=== PATIENT | male | born 1945 | race Asian ===

== ENCOUNTER 2021-12-05 15:23 | Inpatient (IN) | payer OTHER, MEDICARE ==
[~2021-12-05] VITALS: Ht 165.1 cm; Wt 96.2 kg
[2021-12-05] MEDS ORDERED: METO50 PO (15:37)
[2021-12-05] MEDS ORDERED: FELO5TAB45 PO (15:37)
[2021-12-05] MEDS ORDERED: LEVO50 PO (15:37)
[2021-12-05] MEDS ORDERED: IRBE150T51 PO (15:37)
[2021-12-05] MEDS ORDERED: RIVA20TA PO (15:37)
[2021-12-05] MEDS ORDERED: TAMS-13 PO (15:37)
[2021-12-05 16:01] LABS: BASOPHILS % (AUTO) 0.9 % (0.0-2.0); EOSINOPHILS % (AUTO) 3.7 % (1.0-6.0); HEMATOCRIT 44.5 % (41-53); HEMOGLOBIN 15.2 g/dL (13.5-17.5); LYMPHOCYTES # (AUTO) 2.3 K/uL (1.0-4.8); LYMPHOCYTES % (AUTO) 29.7 % (22.0-44.0); MEAN CORPUSCULAR HGB CONC 34.3 G/dL (31.0-37.0); MEAN CORPUSCULAR VOLUME 88 fL (80-100); MONOCYTES # (AUTO) 0.5 K/uL (0.1-1.0); MONOCYTES % (AUTO) 6.8 % (2.0-9.0); NEUTROPHILS # (AUTO) 4.6 K/uL (1.8-7.7); NEUTROPHILS % (AUTO) 58.9 % (40.0-70.0); PLATELET COUNT (AUTO) 202 K/uL (150-450); RED BLOOD CELL COUNT(AUTO) 5.08 MIL/uL (4.50-5.90); RED CELL DISTRIBUTION WIDTH 13.6 % (11.5-14.5)
[2021-12-05 16:14] LABS: ANION GAP 9 mmol/L (8-16); CALCIUM, TOTAL 8.2 mg/dL (8.8-10.5); CARBON DIOXIDE 29 mmol/L (22-29); CHLORIDE 102 mmol/L (98-107); CREATININE 0.99 mg/dL (0.60-1.30); GLUCOSE,RANDOM 112 mg/dL (70-110); POTASSIUM 3.4 mmol/L (3.5-5.1); SODIUM SERUM 140 mmol/L (136-145); UREA NITROGEN, BLOOD 11 mg/dL (7-18)
[2021-12-05 16:15] LABS: GLOMERULAR FILTR. RATE CALC > 60 mL/min (>60)
[2021-12-05 16:17] LABS: B-TYPE NATRIURETIC PEPTIDE 240 pg/mL (0-100)
[2021-12-05 16:24] LABS: ALANINE AMINOTRANSFERASE 23 U/L (12-78); ALBUMIN 3.4 g/dL (3.4-5.0); ALKALINE PHOSPHATASE 54 U/L (46-116); ASPARTATE AMINOTRANSFERASE 18 U/L (15-37); THYROID STIMULATING HORMONE 1.88 uIU/mL (0.36-3.74); TOTAL PROTEIN, SERUM 7.1 g/dL (6.4-8.2)
[2021-12-05] MEDS ORDERED: HydrALAZINE HCL 20 MG/ML VIAL IVP ONE ×2 (16:30→20:15)
[2021-12-05 16:54] LABS: COVID AG,FIA SOURCE NASAL SWAB
[2021-12-05 16:55] LABS: APPEARANCE,URINE CLEAR (CLEAR); BILIRUBIN,URINE NEGATIVE (NEGATIVE); GLUCOSE, URINE (UA) >=1000 mg/dL (NEGATIVE); KETONES,URINE NEGATIVE (NEGATIVE); LEUKOCYTE ESTERASE ,URINE NEGATIVE (NEGATIVE); NITRATE,URINE NEGATIVE (NEGATIVE); OCCULT BLOOD,URINE TRACE (NEGATIVE); PROTEIN,URINE NEGATIVE (NEGATIVE); SPECIFIC GRAVITIY, URINE 1.007 (1.003-1.030); UROBILINOGEN,URINE <=1.0 mg/dL (<=1.0)
[2021-12-05 17:04] LABS: BACTERIA,URINE None Seen /HPF (None Seen); RBC,URINE 0-2 /HPF (0-2); SQUAMOUS EPITHELIAL CELL,UR None Seen /LPF (None Seen); WBC,URINE 0-2 /HPF (0-5)
[2021-12-05] MEDS: AmLODIPine BESYLATE 10 MG TABLET PO SCH (18:08)
[2021-12-05] MEDS ORDERED: POTASSIUM CHL 10 MEQ/WATER 50 ML IV PRN (18:15)
[2021-12-05] MEDS ORDERED: POTASSIUM CHLORIDE 20 MEQ ER TABLET PO PRN (18:15)
[2021-12-05 21:50] VITALS: BP 155/86
[2021-12-05] MEDS: DOCUSATE SODIUM 100 MG CAPSULE PO SCH (22:38)
[2021-12-05] MEDS: LOSARTAN POTASSIUM 25 MG TABLET PO SCH (22:39)
[2021-12-05] MEDS: ACETAMINOPHEN 325 MG TABLET PO PRN (22:40)
[2021-12-06 00:46] VITALS: BP 144/92
[2021-12-06 04:28] VITALS: BP 158/104
[2021-12-06 07:56] VITALS: BP 153/113
[2021-12-06] MEDS: DOCUSATE SODIUM 100 MG CAPSULE PO SCH ×3 (08:59→20:21)
[2021-12-06] MEDS: AmLODIPine BESYLATE 10 MG TABLET PO SCH (09:00)
[2021-12-06] MEDS: FAMOTIDINE 20 MG TABLET PO SCH (09:00)
[2021-12-06] MEDS: RIVAROXABAN 20 MG TABLET PO SCH (09:00)
[2021-12-06] MEDS: METOPROLOL TARTRATE 25 MG TABLET PO SCH (09:01)
[2021-12-06] MEDS: LOSARTAN POTASSIUM 25 MG TABLET PO SCH (09:01)
[2021-12-06 10:55] VITALS: BP 122/50
[2021-12-06] MEDS ORDERED: FINA-27 PO (13:26)
[2021-12-06] MEDS ORDERED: EMPA10TA PO (13:30)
[2021-12-06] MEDS: TAMSULOSIN HCL 0.4 MG CAPSULE PO SCH (14:45)
[2021-12-06] MEDS: FINASTERIDE 5 MG TABLET PO SCH (14:45)
[2021-12-06 15:03] VITALS: BP 135/69
[2021-12-06] MEDS: GuaiFENesin/D-METHORPHAN [SUGAR-FREE] 200-20MG/10 ML SYRUP UDCUP PO PRN (18:42)
[2021-12-06 20:12] VITALS: BP 163/94
[2021-12-06] MEDS: LOSARTAN POTASSIUM 50 MG TABLET PO SCH (20:21)
[2021-12-06] MEDS ORDERED: SODIUM CHLORIDE 0.9% 250 ML IV ONE (22:52)
[2021-12-07 00:12] VITALS: BP 163/95
[2021-12-07] MEDS: GuaiFENesin/D-METHORPHAN [SUGAR-FREE] 200-20MG/10 ML SYRUP UDCUP PO PRN ×2 (01:04→09:28)
[2021-12-07] MEDS: HydrALAZINE HCL 20 MG/ML VIAL IVP PRN ×2 (01:05→05:17)
[2021-12-07 05:13] VITALS: BP 154/105
[2021-12-07 07:45] VITALS: BP 131/99
[2021-12-07] MEDS: ACETAMINOPHEN 325 MG TABLET PO PRN (09:28)
[2021-12-07] MEDS: DOCUSATE SODIUM 100 MG CAPSULE PO SCH (09:29)
[2021-12-07] MEDS: AmLODIPine BESYLATE 10 MG TABLET PO SCH (09:29)
[2021-12-07] MEDS: FAMOTIDINE 20 MG TABLET PO SCH (09:29)
[2021-12-07] MEDS: RIVAROXABAN 20 MG TABLET PO SCH (09:29)
[2021-12-07] MEDS: LOSARTAN POTASSIUM 50 MG TABLET PO SCH (09:29)
[2021-12-07] MEDS: TAMSULOSIN HCL 0.4 MG CAPSULE PO SCH (09:29)
[2021-12-07] MEDS: FINASTERIDE 5 MG TABLET PO SCH (09:30)
[2021-12-07] MEDS: METOPROLOL TARTRATE 25 MG TABLET PO SCH (09:35)
[2021-12-07 12:00] VITALS: BP 133/90
[2021-12-07] MEDS ORDERED: LOSA-382 PO (12:01)
[2021-12-07] MEDS ORDERED: AMLO-258 PO (12:01)
[2021-12-07] MEDS ORDERED: METO25 PO (12:01)
[2021-12-07] MEDS ORDERED: RIVA20TA PO (12:01)
== END 2021-12-07 13:50 | disposition home or self-care (01) | DRG 305 ==
LOC: EMS 15:23 → 5S 18:38
PROVIDERS: ADMIT Internal Medicine; ATTEND Internal Medicine
DX: I16.0 Hypertensive urgency (principal); I48.20 Chronic atrial fibrillation, unspecified; Z20.822 Contact with and (suspected) exposure to COVID-19; R00.1 Bradycardia, unspecified; I10 Essential (primary) hypertension; R55 Syncope and collapse; E87.6 Hypokalemia; E03.9 Hypothyroidism, unspecified; N40.0 Benign prostatic hyperplasia without lower urinary tract symptoms; Z79.01 Long term (current) use of anticoagulants; Z79.899 Other long term (current) drug therapy
CPT/HCPCS: 71045; 80053; 81001; 83880; 84132; 84443; 84484; 85025; 93005; 99291; J0360; J7050; 36415-L1; 36415-TC